=== PATIENT | male | born 1955 | race Caucasian/White ===

== ENCOUNTER 2017-08-16 09:19 | Day surgery (SDC) | payer BC, OTHER, MEDICARE ==
[~2017-08-16] VITALS: Ht 167.6 cm; Wt 77.3 kg
[2017-08-16] MEDS ORDERED: OMEP20CA10 PO (09:50)
[2017-08-16] MEDS ORDERED: CHOL100044 PO (09:51)
[2017-08-16] MEDS ORDERED: CHOL200016 PO (09:51)
[2017-08-16] MEDS ORDERED: ASCO500C15 PO (09:53)
[2017-08-16] MEDS ORDERED: CYAN-19 PO (09:54)
[2017-08-16] MEDS ORDERED: ACET-812 PO (09:55)
[2017-08-16] MEDS ORDERED: MULT-38 PO (09:55)
[2017-08-16 09:58] VITALS: BP 159/92
[2017-08-16] MEDS ORDERED: fentaNYL/PF 50MCG/1 ML 2ML syringe ONE (10:17)
[2017-08-16] MEDS ORDERED: MIDAZolam 5mg/5ml vial ONE (10:17)
[2017-08-16 10:40] VITALS: BP 125/78
[2017-08-16 10:50] VITALS: BP 123/72
[2017-08-16 11:00] VITALS: BP 136/85
[2017-08-16 11:10] VITALS: BP 130/73
== END 2017-08-16 11:45 | disposition home or self-care (01) ==
LOC: GI LAB 09:19
PROVIDERS: ATTEND Internal Medicine Gastroenterology
DX: Z12.11 Encounter for screening for malignant neoplasm of colon (principal); K21.9 Gastro-esophageal reflux disease without esophagitis; Z88.6 Allergy status to analgesic agent; Z88.5 Allergy status to narcotic agent; Z98.890 Other specified postprocedural states; Z79.82 Long term (current) use of aspirin; Z79.899 Other long term (current) drug therapy; Z87.891 Personal history of nicotine dependence
CPT/HCPCS: 45378; 99152; J2250; J3010; J7030; A4620; G0500

== ENCOUNTER 2018-01-25 12:51 | Outpatient (CLI) | payer BC, OTHER, MEDICARE ==
[~2018-01-25 12:51] MED LIST: ACET-812 PO; ASCO500C15 PO; CHOL100044 PO; CYAN-19 PO; MULT-38 PO; OMEP20CA10 PO
== END 2018-01-25 23:59 | disposition home or self-care (01) ==
LOC: RAD 12:51
PROVIDERS: ATTEND Family Medicine
DX: S99.922A Unspecified injury of left foot, initial encounter (principal); M21.42 Flat foot [pes planus] (acquired), left foot; Z79.899 Other long term (current) drug therapy; X58.XXXA Exposure to other specified factors, initial encounter; Y93.89 Activity, other specified; Y92.89 Other specified places as the place of occurrence of the external cause; Y99.8 Other external cause status
CPT/HCPCS: 73630

== ENCOUNTER 2020-02-26 09:57 | Outpatient (CLI) | payer BC, MEDICARE ==
[~2020-02-26 09:57] MED LIST changes: -ASCO500C15 PO; +ASCO500C18 PO; -CYAN-19 PO; +CYAN-51 PO; -OMEP20CA10 PO; +OMEP20CA15 PO
[2020-02-26 11:17] LABS: CLARITY,URINE CLEAR (Clear); COLOR,URINE STRAW (Yellow); GLUCOSE, URINE NEGATIVE (Neg); KETONES,URINE NEGATIVE (Neg); LEUKOCYTE ESTERASE ,URINE NEGATIVE (Neg); NITRITES, URINE NEGATIVE (Neg); OCCULT BLOOD,URINE TRACE-INTACT (Neg); PROTEIN,URINE NEGATIVE (Neg); UROBILINOGEN,URINE 0.2 E.U/dL (0.2-1.0)
[2020-02-26 11:17] LABS: BASOPHILS # (AUTO) 0.1 X10'3 (0-0.2); EOSINOPHILS # (AUTO) 0.1 X10'3 (0-0.9); HEMOGLOBIN 11.5 g/dl (14.0-17.9); NEUTROPHILS # (AUTO) 3.5 X10'3 (1.8-7.7); NEUTROPHILS % (AUTO) 62.8 % (42-75); WHITE BLOOD COUNT 5.6 X10'3 (4.5-11.0)
[2020-02-26 11:19] LABS: BASOPHILS % (AUTO) 1.2 % (0-1); EOSINOPHILS % (AUTO) 1.9 % (0-6); HEMATOCRIT 36.8 % (42.0-52.0); LYMPHOCYTES # (AUTO) 1.4 X10'3 (1.1-4.8); LYMPHOCYTES % (AUTO) 24.5 % (21-51); MEAN CORPUSCULAR HGB CONC 31.4 g/dL (33.0-36.5); MEAN PLATELET VOLUME 9.3 FL (7.4-10.4); MONOCYTES # (AUTO) 0.5 X10'3 (0-0.9); MONOCYTES % (AUTO) 9.6 % (2-12); PLATELET COUNT 180 X10'3 (140-440); RED BLOOD COUNT 5.26 X10'6 (4.70-6.10); RED CELL DISTRIBUTION WIDTH 16.6 % (11.5-14.5)
[2020-02-26 11:22] LABS: UA COLLECTION TYPE VOIDED
[2020-02-26 11:38] LABS: ALANINE AMINOTRANSFERASE 25 U/L (12-78); ALBUMIN 4.2 G/DL (3.4-5.0); ALBUMIN/GLOBULIN RATIO 1.2 (1.1-1.5); ALKALINE PHOSPHATASE 79 IU/L (46-116); ANION GAP 7 (8-16); ASPARTATE AMINO TRANSFERASE 22 U/L (10-37); BILIRUBIN,TOTAL 0.5 MG/DL (0.1-1.0); BLOOD UREA NITROGEN 13 MG/DL (7-18); BUN/CREATININE RATIO 13.8 (5.4-32.0); CALCIUM 9.1 MG/DL (8.5-10.1); CHLORIDE 102 MMOL/L (99-107); CHOL/HDL RATIO 4.8 (0.00-4.99); CHOLESTEROL 196 MG/DL (0-200); CREATININE 0.94 MG/DL (0.60-1.10); GLUCOSE 98 MG/DL (70-104); HDL CHOLESTEROL 41 MG/DL (35-60); LDL CHOLESTEROL 138 MG/DL (50-100); POTASSIUM 4.4 MMOL/L (3.5-5.1); SODIUM 138 MMOL/L (135-145); TOTAL CARBON DIOXIDE 29.4 MMOL/L (24-32); TOTAL PROTEIN 7.6 G/DL (6.4-8.2); TRIGLYCERIDES 90 MG/DL (20-135); eGFR 81 ML/MIN
[2020-02-26 12:03] LABS: MUCUS STRANDS NONE SEEN /LPF (Neg); SQUAMOUS EPITHELIAL CELL,UR FEW /LPF (FEW); TRANSITIONAL EPI CELLS,URINE FEW /HPF
[2020-02-26 12:05] LABS: BACTERIA,URINE NONE SEEN /HPF (Neg); WBC,URINE 0-4 /HPF (0-4)
== END 2020-02-26 23:59 | disposition home or self-care (01) ==
LOC: EEVIPCON 09:57 → LAB 09:57
PROVIDERS: ATTEND Family Medicine
DX: R53.83 Other fatigue (principal)
CPT/HCPCS: 36415; 80053; 80061; 81001; 84439; 84443; 85025

== ENCOUNTER 2020-03-09 22:33 | Emergency (ER) | payer BC, MEDICARE ==
[~2020-03-09] VITALS: Ht 165.1 cm; Wt 79.5 kg
[2020-03-09] MEDS ORDERED: LIDOcaine 1% W/epiNEPHrine 1:200,000 10ml vial IJ ONE (23:10)
[2020-03-09] MEDS ORDERED: BACDS PO (23:12)
[2020-03-09] MEDS ORDERED: CEPH250T PO (23:12)
[2020-03-09] MEDS ORDERED: LIDOcaine 1% w/epiNEPHrine 1:200,000 30ml vial IJ ONE (23:15)
[2020-03-10 00:05] VITALS: BP 159/94
== END 2020-03-10 00:02 | disposition home or self-care (01) ==
LOC: ER 22:33
DX: L02.416 Cutaneous abscess of left lower limb (principal); Z72.89 Other problems related to lifestyle; Z79.2 Long term (current) use of antibiotics; Z79.899 Other long term (current) drug therapy
CPT/HCPCS: 10060; 76882; 99284

== ENCOUNTER 2021-02-18 12:03 | Emergency (ER) | payer BC, MEDICARE ==
[~2021-02-18] VITALS: Ht 165.1 cm; Wt 78.2 kg
[2021-02-18 12:56] VITALS: BP 123/78
[2021-02-18] MEDS ORDERED: ondansetron 4mg rapidly disintigrating tab PO ONE (13:15)
[2021-02-18 13:30] LABS: BASOPHILS % (AUTO) 0.6 % (0-1); EOSINOPHILS % (AUTO) 0.1 % (0-6); HEMATOCRIT 44.1 % (42.0-52.0); HEMOGLOBIN 15.4 g/dl (14.0-17.9); LYMPHOCYTES # (AUTO) 0.6 X10'3 (1.1-4.8); LYMPHOCYTES % (AUTO) 19.4 % (21-51); MEAN CORPUSCULAR HGB CONC 34.9 g/dL (33.0-36.5); MEAN CORPUSCULAR VOLUME 86.2 FL (78-98); MEAN PLATELET VOLUME 9.3 FL (7.4-10.4); MONOCYTES # (AUTO) 0.4 X10'3 (0-0.9); MONOCYTES % (AUTO) 12.2 % (2-12); NEUTROPHILS % (AUTO) 67.7 % (42-75); PLATELET COUNT 86 X10'3 (140-440); RED BLOOD COUNT 5.12 X10'6 (4.70-6.10); RED CELL DISTRIBUTION WIDTH 13.5 % (11.5-14.5); WHITE BLOOD COUNT 2.9 X10'3 (4.5-11.0)
[2021-02-18 13:45] LABS: ALANINE AMINOTRANSFERASE 40 U/L (12-78); ALBUMIN 3.7 G/DL (3.4-5.0); ALBUMIN/GLOBULIN RATIO 1.1 (1.1-1.5); ALKALINE PHOSPHATASE 66 IU/L (46-116); ANION GAP 10 (8-16); ASPARTATE AMINO TRANSFERASE 34 U/L (10-37); BILIRUBIN,TOTAL 0.7 MG/DL (0.1-1.0); BLOOD UREA NITROGEN 18 MG/DL (7-18); BUN/CREATININE RATIO 13.4 (5.4-32.0); C-REACTIVE PROTEIN 2.91 MG/DL (0.0-0.5); CALCIUM 8.4 MG/DL (8.5-10.1); CHLORIDE 102 MMOL/L (99-107); CREATININE 1.34 MG/DL (0.60-1.10); GLUCOSE 106 MG/DL (70-104); LACTATE DEHYDROGENASE 201 U/L (85-227); POTASSIUM 3.7 MMOL/L (3.5-5.1); SODIUM 138 MMOL/L (135-145); TOTAL CARBON DIOXIDE 26.3 MMOL/L (24-32); TOTAL PROTEIN 7.1 G/DL (6.4-8.2); eGFR 53 ML/MIN
[2021-02-18 14:00] LABS: TOTAL CELLS COUNTED 100
[2021-02-18 14:02] LABS: PLATELET ESTIMATE DECREASED
[2021-02-18] MEDS ORDERED: ONDA4TAB6 PO (14:39)
== END 2021-02-18 14:56 | disposition home or self-care (01) ==
LOC: ER 12:04
DX: U07.1 COVID-19 (principal); R05.9 Cough, unspecified; R50.9 Fever, unspecified; R09.89 Other specified symptoms and signs involving the circulatory and respiratory systems; Z72.89 Other problems related to lifestyle; Z88.5 Allergy status to narcotic agent; Z79.899 Other long term (current) drug therapy
CPT/HCPCS: 36415; 71045; 80053; 83615; 85007; 85025; 86140; 87635; 99284; C9803

== ENCOUNTER 2021-02-19 22:42 | Emergency (ER) | payer BC, MEDICARE ==
[~2021-02-19] VITALS: Ht 165.1 cm; Wt 76.8 kg
[~2021-02-19 22:42] MED LIST changes: +ONDA4TAB6 PO
[2021-02-19 23:35] VITALS: BP 110/72
== END 2021-02-20 01:21 | disposition left against medical advice (07) ==
LOC: ER 22:43
DX: Z53.21 Procedure and treatment not carried out due to patient leaving prior to being seen by health care provider (principal)

== ENCOUNTER 2021-09-05 13:24 | Outpatient (CLI) | payer BC, MEDICARE ==
[2021-09-05 14:07] LABS: BASOPHILS # (AUTO) 0.1 X10'3 (0-0.2); BASOPHILS % (AUTO) 1.1 % (0-1); EOSINOPHILS # (AUTO) 0.1 X10'3 (0-0.9); EOSINOPHILS % (AUTO) 2.1 % (0-6); HEMATOCRIT 44.8 % (42.0-52.0); HEMOGLOBIN 15.1 g/dl (14.0-17.9); LYMPHOCYTES # (AUTO) 1.3 X10'3 (1.1-4.8); LYMPHOCYTES % (AUTO) 20.2 % (21-51); MEAN CORPUSCULAR HEMOGLOBIN 28.6 PG (27.0-31.0); MEAN CORPUSCULAR HGB CONC 33.8 g/dL (33.0-36.5); MEAN CORPUSCULAR VOLUME 84.6 FL (78-98); MEAN PLATELET VOLUME 9.1 FL (7.4-10.4); MONOCYTES # (AUTO) 0.6 X10'3 (0-0.9); MONOCYTES % (AUTO) 9.3 % (2-12); NEUTROPHILS # (AUTO) 4.3 X10'3 (1.8-7.7); NEUTROPHILS % (AUTO) 67.3 % (42-75); PLATELET COUNT 160 X10'3 (140-440); RED BLOOD COUNT 5.29 X10'6 (4.70-6.10); RED CELL DISTRIBUTION WIDTH 13.2 % (11.5-14.5); WHITE BLOOD COUNT 6.5 X10'3 (4.5-11.0)
[2021-09-05 14:12] LABS: CLARITY,URINE CLEAR (Clear); COLOR,URINE YELLOW (Yellow); GLUCOSE, URINE NEGATIVE (Neg); KETONES,URINE NEGATIVE (Neg); LEUKOCYTE ESTERASE ,URINE NEGATIVE (Neg); NITRITES, URINE NEGATIVE (Neg); OCCULT BLOOD,URINE TRACE-INTACT (Neg); PROTEIN,URINE NEGATIVE (Neg); UA COLLECTION TYPE CLN CATCH MIDSTREAM; UROBILINOGEN,URINE 0.2 E.U/dL (0.2-1.0)
[2021-09-05 14:18] LABS: BACTERIA,URINE NONE SEEN /HPF (Neg); RBC,URINE 0-2 /HPF (0-2); SQUAMOUS EPITHELIAL CELL,UR FEW /LPF (FEW); WBC,URINE NONE SEEN /HPF (0-4)
[2021-09-05 14:26] LABS: ALANINE AMINOTRANSFERASE 32 U/L (12-78); ALBUMIN 3.8 G/DL (3.4-5.0); ALBUMIN/GLOBULIN RATIO 1.2 (1.1-1.5); ALKALINE PHOSPHATASE 79 IU/L (46-116); ANION GAP 8 (8-16); ASPARTATE AMINO TRANSFERASE 22 U/L (10-37); BILIRUBIN,TOTAL 0.5 MG/DL (0.1-1.0); BLOOD UREA NITROGEN 14 MG/DL (7-18); BUN/CREATININE RATIO 15.9 (5.4-32.0); CALCIUM 8.4 MG/DL (8.5-10.1); CHLORIDE 105 MMOL/L (99-107); CHOL/HDL RATIO 4.7 (0.00-4.99); CHOLESTEROL 208 MG/DL (0-200); CREATININE 0.88 MG/DL (0.60-1.10); GLUCOSE 93 MG/DL (70-104); HDL CHOLESTEROL 44 MG/DL (35-60); HEMOGLOBIN A1C 5.2 % (4.5-6.2); LDL CHOLESTEROL 135 MG/DL (50-100); SODIUM 140 MMOL/L (135-145); TOTAL CARBON DIOXIDE 26.8 MMOL/L (24-32); TOTAL PROTEIN 6.9 G/DL (6.4-8.2); TRIGLYCERIDES 135 MG/DL (20-135); eGFR 87 ML/MIN
== END 2021-09-05 23:59 | disposition home or self-care (01) ==
LOC: LAB 13:24
PROVIDERS: ATTEND Family Medicine
DX: Z00.00 Encounter for general adult medical examination without abnormal findings (principal)
CPT/HCPCS: 36415; 80053; 80061; 81001; 83036; 84402; 84403; 84439; 84443; 85025

== ENCOUNTER 2021-09-14 09:01 | Outpatient (CLI) | payer BC, MEDICARE ==
[2021-09-15 10:33] LABS: PSA, ULTRASENSITIVE W/O SERIAL 0.721 ng/mL (0.000-4.000)
[2021-09-18 07:16] LABS: TESTOSTERONE, FREE, DIRECT 3.5 pg/mL (6.6-18.1)
== END 2021-09-14 23:59 | disposition home or self-care (01) ==
LOC: LAB 09:01
PROVIDERS: ATTEND Family Medicine
DX: Z00.01 Encounter for general adult medical examination with abnormal findings (principal)
CPT/HCPCS: 36415; 84153; 84402; 84403

== ENCOUNTER 2022-02-09 19:08 | Emergency (ER) | payer BC, MEDICARE ==
[~2022-02-09] VITALS: Ht 165.1 cm; Wt 78.2 kg
[2022-02-09 20:51] VITALS: BP 155/70
== END 2022-02-09 20:53 | disposition home or self-care (01) ==
LOC: ER 19:09
DX: M79.642 Pain in left hand (principal); Z88.5 Allergy status to narcotic agent
CPT/HCPCS: 29125; 73130; 99283

== ENCOUNTER 2022-03-23 05:40 | Day surgery (SDC) | payer BC, MEDICARE ==
[2022-03-15 10:58] LABS: BASOPHILS # (AUTO) 0.1 X10'3 (0-0.2); EOSINOPHILS # (AUTO) 0.1 X10'3 (0-0.9); EOSINOPHILS % (AUTO) 1.8 % (0-6); LYMPHOCYTES # (AUTO) 1.5 X10'3 (1.1-4.8); MEAN CORPUSCULAR HGB CONC 34.6 g/dL (33.0-36.5); MEAN CORPUSCULAR VOLUME 86.8 FL (78-98); MONOCYTES # (AUTO) 0.8 X10'3 (0-0.9); MONOCYTES % (AUTO) 10.2 % (2-12); PRE OP HEMATOCRIT 44.1 % (42.0-52.0); PRE OP HEMOGLOBIN 15.3 g/dL (14.0-17.9); PRE OP PLATELET COUNT 164 X10'3 (140-440); RED BLOOD COUNT 5.08 X10'6 (4.70-6.10); RED CELL DISTRIBUTION WIDTH 13.1 % (11.5-14.5)
[2022-03-15 11:23] LABS: ALBUMIN 3.8 G/DL (3.4-5.0); ALBUMIN/GLOBULIN RATIO 1.2 (1.1-1.5); ALKALINE PHOSPHATASE 74 IU/L (46-116); BLOOD UREA NITROGEN 13 MG/DL (7-18); CALCIUM 8.6 MG/DL (8.5-10.1); CHLORIDE 104 MMOL/L (99-107); PRE OP ALT 30 U/L (30-65); PRE OP ANION GAP 7 (8-16); PRE OP AST 27 U/L (10-37); PRE OP BILIRUB, TOTAL 0.6 MG/DL (0.0-1.0); PRE OP GLUCOSE 101 MG/DL (70-104); PRE OP POTASSIUM 4.3 MMOL/L (3.4-5.1); PRE OP SODIUM 140 MMOL/L (135-145); TOTAL CARBON DIOXIDE 29.2 MMOL/L (24-32); eGFR 75 ML/MIN
[~2022-03-23] VITALS: Ht 162.6 cm; Wt 84.3 kg
[2022-03-23] VITALS (12 sets, daily range): BP systolic 144–177; BP diastolic 78–98
[~2022-03-23 05:40] MED LIST changes: +FERR236T3 PO; -ONDA4TAB6 PO; +TEST5GEL2 TOP; +TURM500C4 PO; +[UNRECOGNIZED DRUG - CODE] PO; +ceFAZolin inj. 2,000 MG in dextrose 5%-water 100 ML IV ONE; +famotidine 20mg tablet PO ONE; +ringers solution, lacted 1,000 ML IV SCH
[2022-03-23] MEDS ORDERED: LIDOCAINE 1%/EPI 1:100,000 inj. 10 ML multi-dose vial ONE ×2 (06:42→07:52)
[2022-03-23] MEDS ORDERED: TETRACAINE 0.5% 4 ML OPHTHALMIC DROPS ONE (06:42)
[2022-03-23] MEDS ORDERED: ondansetron/PF 4mg/2ml inj IV PRN (07:15)
[2022-03-23] MEDS ORDERED: labetalol 20mg/4ml (5mg/ml) syringe IV PRN (07:15)
[2022-03-23] MEDS ORDERED: fentaNYL/PF 50MCG/1 ML 2ML syringe IV PRN ×2 (07:15)
[2022-03-23] MEDS ORDERED: morphine 4 MG/ML inj SYRINge IV PRN (07:15)
[2022-03-23] MEDS ORDERED: hydrALAZINE 20mg/ml inj. IV PRN (07:15)
[2022-03-23] MEDS ORDERED: ringers solution, lacted 1,000 ML IV SCH (07:15)
[2022-03-23] MEDS ORDERED: morphine 2 MG/ML inj. syringe IV PRN (07:15)
[2022-03-23] MEDS ORDERED: fentaNYL/PF 50MCG/1 ML 2ML syringe ONE ×2 (07:20→08:47)
[2022-03-23] MEDS ORDERED: midazolam 1 mg/ML 2ml injection ONE (07:21)
[2022-03-23] MEDS ORDERED: LIDOcaine 2% (20mg/ml) 5ml vial ONE (07:22)
[2022-03-23] MEDS ORDERED: propofol inj 20 ML IV ONE (07:22)
[2022-03-23] MEDS ORDERED: ondansetron/PF 4mg/2ml inj ONE (07:36)
[2022-03-23] MEDS ORDERED: dexamethasone sod phosphate 4mg/ml inj. ONE (07:37)
[2022-03-23] MEDS ORDERED: labetalol 20mg/4ml (5mg/ml) syringe IV ONE (07:45)
--- NOTE | 2022-03-23 09:16 | NUR ---
Received from OR via [facility], accompanied by Anesthesiologist DR WAGONER and report given by Anesthesiologist AND SENIOR REPORT DEVELOPER. PT RESTLESS, ATTEMPTING TO SIT UP AND REFUSING TO WEAR EYE PADS. BILAT EYES W/STITCHES ABOVE AND BELOW EYE LIDS INTACT, SCANT AMT OF S/S DRAINAGE FROM OUTER LEFT EYE, DR MORAES IN AND ASSESSED, IS OKAY. PT NOW COMPLIANT, PLACED COOLED WET 4X4'S OVER BILAT EYES. Addendum: 03/23/22 at 1001 by Maris Gary RN Amended: Links added.
--- NOTE | 2022-03-23 11:06 | NUR ---
PT UP AND ABLE TO AMBULATE SAFELY, VOIDED, D/C INSTRUCTIONS GIVEN AND GONE OVER W/PT WHO VERBALIZED UNDERSTANDING. PT D/CD TO HOME VIA W/C TO PRIVATE VEHICLE W/O INCIDENT. Addendum: 03/23/22 at 1134 by Maris Gary RN Amended: Links added.
== END 2022-03-23 11:06 | disposition home or self-care (01) ==
LOC: PAS 05:40
PROVIDERS: ATTEND Specialist
DX: H02.831 Dermatochalasis of right upper eyelid (principal); H02.834 Dermatochalasis of left upper eyelid; H02.832 Dermatochalasis of right lower eyelid; H02.835 Dermatochalasis of left lower eyelid; K21.9 Gastro-esophageal reflux disease without esophagitis; M19.90 Unspecified osteoarthritis, unspecified site; Z79.899 Other long term (current) drug therapy; Z98.890 Other specified postprocedural states; Z88.6 Allergy status to analgesic agent
CPT/HCPCS: 15821; 15823; 36415; 80053; 82948; 85025; 93005; A6402; J0360; J0690; J1100; J2250; J2405; J2704; J3010; J3490; J7030; J7060; J7120; Z7506; Z7508; Z7512; A4215; A4618; A6410; A6449; A7000

== ENCOUNTER 2022-05-10 11:51 | Outpatient (CLI) | payer BC, MEDICARE ==
[~2022-05-10 11:51] MED LIST changes: -ceFAZolin inj. 2,000 MG in dextrose 5%-water 100 ML IV ONE; -famotidine 20mg tablet PO ONE; -ringers solution, lacted 1,000 ML IV SCH
[2022-05-10 12:46] LABS: BASOPHILS # (AUTO) 0.1 X10'3 (0-0.2); BASOPHILS % (AUTO) 1.3 % (0-1); CLARITY,URINE CLEAR (Clear); COLOR,URINE YELLOW (Yellow); EOSINOPHILS # (AUTO) 0.1 X10'3 (0-0.9); EOSINOPHILS % (AUTO) 2.1 % (0-6); GLUCOSE, URINE NEGATIVE (Neg); HEMATOCRIT 39.7 % (42.0-52.0); HEMOGLOBIN 13.1 g/dl (14.0-17.9); KETONES,URINE NEGATIVE (Neg); LEUKOCYTE ESTERASE ,URINE NEGATIVE (Neg); LYMPHOCYTES # (AUTO) 1.1 X10'3 (1.1-4.8); MEAN CORPUSCULAR HEMOGLOBIN 28.5 PG (27.0-31.0); MEAN CORPUSCULAR HGB CONC 32.9 g/dL (33.0-36.5); MEAN CORPUSCULAR VOLUME 86.5 FL (78-98); MEAN PLATELET VOLUME 9.6 FL (7.4-10.4); MONOCYTES # (AUTO) 0.6 X10'3 (0-0.9); MONOCYTES % (AUTO) 11.1 % (2-12); NEUTROPHILS # (AUTO) 3.4 X10'3 (1.8-7.7); NEUTROPHILS % (AUTO) 64.5 % (42-75); NITRITES, URINE NEGATIVE (Neg); OCCULT BLOOD,URINE TRACE-INTACT (Neg); PLATELET COUNT 210 X10'3 (140-440); PROTEIN,URINE NEGATIVE (Neg); RED BLOOD COUNT 4.59 X10'6 (4.70-6.10); RED CELL DISTRIBUTION WIDTH 13.6 % (11.5-14.5); UROBILINOGEN,URINE 0.2 E.U/dL (0.2-1.0); WHITE BLOOD COUNT 5.3 X10'3 (4.5-11.0)
[2022-05-10 12:54] LABS: UA COLLECTION TYPE NON-SPECIFIED
[2022-05-10 12:59] LABS: BACTERIA,URINE NONE SEEN /HPF (Neg); MUCUS STRANDS NONE SEEN /LPF (Neg); RBC,URINE 0-2 /HPF (0-2); SQUAMOUS EPITHELIAL CELL,UR NONE SEEN /LPF (FEW); WBC,URINE NONE SEEN /HPF (0-4)
[2022-05-10 13:06] LABS: ALANINE AMINOTRANSFERASE 25 U/L (12-78); ALBUMIN 4.1 G/DL (3.4-5.0); ALBUMIN/GLOBULIN RATIO 1.4 (1.1-1.5); ALKALINE PHOSPHATASE 70 IU/L (46-116); ANION GAP 5 (8-16); ASPARTATE AMINO TRANSFERASE 27 U/L (10-37); BILIRUBIN,TOTAL 0.5 MG/DL (0.1-1.0); BLOOD UREA NITROGEN 12 MG/DL (7-18); BUN/CREATININE RATIO 12.9 (5.4-32.0); CALCIUM 8.5 MG/DL (8.5-10.1); CHLORIDE 101 MMOL/L (99-107); CHOL/HDL RATIO 3.8 (0.00-4.99); CHOLESTEROL 189 MG/DL (0-200); CREATININE 0.93 MG/DL (0.60-1.10); GLUCOSE 103 MG/DL (70-104); HDL CHOLESTEROL 50 MG/DL (35-60); LDL CHOLESTEROL 130 MG/DL (50-100); POTASSIUM 3.6 MMOL/L (3.5-5.1); SODIUM 138 MMOL/L (135-145); TOTAL CARBON DIOXIDE 31.7 MMOL/L (24-32); TOTAL PROTEIN 7.1 G/DL (6.4-8.2); TRIGLYCERIDES 73 MG/DL (20-135); eGFR 81 ML/MIN
[2022-05-17 13:13] LABS: TESTOSTERONE, FREE, DIRECT 14.7 pg/mL (6.6-18.1)
== END 2022-05-10 23:59 | disposition home or self-care (01) ==
LOC: LAB 11:51
PROVIDERS: ATTEND Family Medicine
DX: D50.9 Iron deficiency anemia, unspecified (principal); R53.83 Other fatigue; E78.5 Hyperlipidemia, unspecified
CPT/HCPCS: 36415; 80053; 80061; 81001; 84402; 84403; 84439; 84443; 85025

== ENCOUNTER → 2022-05-19 | Outpatient (CLI) | payer BC, MEDICARE ==
[2022-05-19 10:25] LABS: BASOPHILS # (AUTO) 0.1 X10'3 (0-0.2); BASOPHILS % (AUTO) 0.9 % (0-1); EOSINOPHILS # (AUTO) 0.2 X10'3 (0-0.9); EOSINOPHILS % (AUTO) 2.8 % (0-6); HEMATOCRIT 39.3 % (42.0-52.0); HEMOGLOBIN 12.9 g/dl (14.0-17.9); LYMPHOCYTES # (AUTO) 1.2 X10'3 (1.1-4.8); LYMPHOCYTES % (AUTO) 21.3 % (21-51); MEAN CORPUSCULAR HEMOGLOBIN 28.3 PG (27.0-31.0); MEAN CORPUSCULAR HGB CONC 32.9 g/dL (33.0-36.5); MEAN CORPUSCULAR VOLUME 86.1 FL (78-98); MEAN PLATELET VOLUME 9.7 FL (7.4-10.4); MONOCYTES # (AUTO) 0.6 X10'3 (0-0.9); MONOCYTES % (AUTO) 10.8 % (2-12); NEUTROPHILS # (AUTO) 3.7 X10'3 (1.8-7.7); NEUTROPHILS % (AUTO) 64.2 % (42-75); PLATELET COUNT 156 X10'3 (140-440); RED BLOOD COUNT 4.56 X10'6 (4.70-6.10); RED CELL DISTRIBUTION WIDTH 13.5 % (11.5-14.5); WHITE BLOOD COUNT 5.7 X10'3 (4.5-11.0)
[2022-05-19 10:43] LABS: % IRON SATURATION 91 % (11-46); IRON 317 UG/DL (53-167); TOTAL IRON BINDING CAPACITY 347 UG/DL (259-388)
== END | disposition home or self-care (01) ==
LOC: LAB 09:38
PROVIDERS: ATTEND Family Medicine
DX: I78.0 Hereditary hemorrhagic telangiectasia (principal)
CPT/HCPCS: 36415; 82728; 83540; 83550; 85025

== ENCOUNTER 2023-02-14 23:12 | Emergency (ER) | payer BC, MEDICARE ==
[~2023-02-14] VITALS: Ht 165.1 cm; Wt 78.2 kg
[~2023-02-14 23:12] MED LIST changes: +CYAN-104 PO; -CYAN-51 PO
[2023-02-15 02:13] VITALS: BP 122/72; PULSE 61; RESP 16; TEMP 98.3; O2SAT 96
[2023-02-15] MEDS ORDERED: normal saline 1000ml 1,000 ML IV ONE (02:25)
[2023-02-15 02:42] LABS: BASOPHILS # (AUTO) 0.1 X10'3 (0-0.2); EOSINOPHILS # (AUTO) 0.1 X10'3 (0-0.9); EOSINOPHILS % (AUTO) 1.3 % (0-6); HEMATOCRIT 30.4 % (42.0-52.0); HEMOGLOBIN 10.1 g/dl (14.0-17.9); LYMPHOCYTES # (AUTO) 1.1 X10'3 (1.1-4.8); LYMPHOCYTES % (AUTO) 13.3 % (21-51); MEAN CORPUSCULAR HEMOGLOBIN 27.4 PG (27.0-31.0); MEAN CORPUSCULAR HGB CONC 33.2 g/dL (33.0-36.5); MEAN CORPUSCULAR VOLUME 82.5 FL (78-98); MEAN PLATELET VOLUME 8.8 FL (7.4-10.4); MONOCYTES # (AUTO) 0.6 X10'3 (0-0.9); MONOCYTES % (AUTO) 6.8 % (2-12); NEUTROPHILS # (AUTO) 6.7 X10'3 (1.8-7.7); NEUTROPHILS % (AUTO) 77.6 % (42-75); PLATELET COUNT 183 X10'3 (140-440); RED BLOOD COUNT 3.69 X10'6 (4.70-6.10); RED CELL DISTRIBUTION WIDTH 14.7 % (11.5-14.5); WHITE BLOOD COUNT 8.6 X10'3 (4.5-11.0)
== END 2023-02-15 03:45 | disposition home or self-care (01) ==
LOC: ER 23:13
DX: R04.0 Epistaxis (principal); R42 Dizziness and giddiness; R55 Syncope and collapse; Z88.5 Allergy status to narcotic agent; Z88.6 Allergy status to analgesic agent; Z79.899 Other long term (current) drug therapy; Z88.8 Allergy status to other drugs, medicaments and biological substances
CPT/HCPCS: 36415; 85025; 99283

== ENCOUNTER 2023-09-27 08:23 | Outpatient (CLI) | payer BC, MEDICARE ==
[2023-09-27 08:59] LABS: BILIRUBIN,URINE NEGATIVE (Neg); CLARITY,URINE CLEAR (Clear); COLOR,URINE YELLOW (Yellow); GLUCOSE, URINE NEGATIVE (Neg); KETONES,URINE NEGATIVE (Neg); LEUKOCYTE ESTERASE ,URINE NEGATIVE (Neg); NITRITES, URINE NEGATIVE (Neg); OCCULT BLOOD,URINE TRACE-INTACT (Neg); PH,URINE 5.5 (4.8-8.0); PROTEIN,URINE NEGATIVE (Neg); UROBILINOGEN,URINE 0.2 E.U/dL (0.2-1.0)
[2023-09-27 09:02] LABS: BASOPHILS # (AUTO) 0.1 X10'3 (0-0.2); BASOPHILS % (AUTO) 1.4 % (0-1); EOSINOPHILS # (AUTO) 0.1 X10'3 (0-0.9); EOSINOPHILS % (AUTO) 1.9 % (0-6); HEMATOCRIT 38.7 % (42.0-52.0); HEMOGLOBIN 12.4 g/dl (14.0-17.9); LYMPHOCYTES % (AUTO) 19.1 % (21-51); MEAN CORPUSCULAR HEMOGLOBIN 25.5 PG (27.0-31.0); MEAN CORPUSCULAR VOLUME 79.5 FL (78-98); MEAN PLATELET VOLUME 9.2 FL (7.4-10.4); MONOCYTES # (AUTO) 0.5 X10'3 (0-0.9); MONOCYTES % (AUTO) 9.7 % (2-12); NEUTROPHILS # (AUTO) 3.6 X10'3 (1.8-7.7); NEUTROPHILS % (AUTO) 67.9 % (42-75); PLATELET COUNT 202 X10'3 (140-440); RED BLOOD COUNT 4.87 X10'6 (4.70-6.10); WHITE BLOOD COUNT 5.3 X10'3 (4.5-11.0)
[2023-09-27 09:03] LABS: UA COLLECTION TYPE VOIDED
[2023-09-27 09:05] LABS: MUCUS STRANDS FEW /LPF (Neg); SQUAMOUS EPITHELIAL CELL,UR FEW /LPF (FEW)
[2023-09-27 09:06] LABS: COARSE GRANULAR CAST 0-3 /LPF (NEGATIVE); FINE GRANULAR CAST 0-3 /LPF (NEGATIVE); WBC,URINE 0-4 /HPF (0-4)
[2023-09-27 09:07] LABS: BACTERIA,URINE FEW /HPF (Neg)
[2023-09-27 09:15] LABS: ALANINE AMINOTRANSFERASE 25 U/L (12-78); ALBUMIN 3.8 G/DL (3.4-5.0); ALBUMIN/GLOBULIN RATIO 1.1 (1.1-1.5); ALKALINE PHOSPHATASE 78 IU/L (46-116); ANION GAP 7 (8-16); ASPARTATE AMINO TRANSFERASE 21 U/L (10-37); BILIRUBIN,TOTAL 0.4 MG/DL (0.1-1.0); BLOOD UREA NITROGEN 16 MG/DL (7-18); CALCIUM 8.9 MG/DL (8.5-10.1); CHLORIDE 103 MMOL/L (99-107); CREATININE 0.94 MG/DL (0.60-1.10); GLUCOSE 100 MG/DL (70-104); POTASSIUM 4.2 MMOL/L (3.5-5.1); SODIUM 139 MMOL/L (135-145); TOTAL CARBON DIOXIDE 29.4 MMOL/L (24-32); TOTAL PROTEIN 7.3 G/DL (6.4-8.2); eGFR 80 ML/MIN
[2023-09-27 09:25] LABS: CHOLESTEROL 174 MG/DL (0-200); FREE T4 (FREE THYROXINE) 0.61 NG/DL (0.73-1.40); HDL CHOLESTEROL 44 MG/DL (35-60); LDL CHOLESTEROL 117 MG/DL (50-100); TRIGLYCERIDES 101 MG/DL (20-135)
[2023-09-28 11:58] LABS: CREATININE, URINE 139.9 mg/dL (Not Estab.); MICROALB/CRT, RATIO 7 mg/g creat (0-29); MICROALBUMIN,U,RANDOM 9.9 ug/mL (Not Estab.); TESTOSTERONE, SERUM 418 ng/dL (264-916)
== END 2023-09-27 23:59 | disposition home or self-care (01) ==
LOC: LAB 08:23
PROVIDERS: ATTEND Family Medicine
DX: Z00.01 Encounter for general adult medical examination with abnormal findings (principal); E78.5 Hyperlipidemia, unspecified; R53.83 Other fatigue
CPT/HCPCS: 36415; 80053; 80061; 81001; 82043; 82570; 84153; 84402; 84403; 84439; 84443; 85025

== ENCOUNTER 2024-08-21 09:49 | Outpatient (CLI) | payer BC, MEDICARE ==
[2024-08-21 10:27] LABS: BASOPHILS # (AUTO) 0.1 X10'3 (0-0.2); BASOPHILS % (AUTO) 1.1 % (0-1); BILIRUBIN,URINE NEGATIVE (Neg); CLARITY,URINE CLEAR (Clear); COLOR,URINE YELLOW (Yellow); EOSINOPHILS # (AUTO) 0.1 X10'3 (0-0.9); EOSINOPHILS % (AUTO) 1.9 % (0-6); GLUCOSE, URINE NEGATIVE (Neg); HEMATOCRIT 40.9 % (42.0-52.0); HEMOGLOBIN 13.9 g/dl (14.0-17.9); KETONES,URINE NEGATIVE (Neg); LEUKOCYTE ESTERASE ,URINE NEGATIVE (Neg); LYMPHOCYTES # (AUTO) 1.1 X10'3 (1.1-4.8); LYMPHOCYTES % (AUTO) 21.6 % (21-51); MEAN CORPUSCULAR HGB CONC 33.8 g/dL (33.0-36.5); MEAN CORPUSCULAR VOLUME 82.8 FL (78-98); MEAN PLATELET VOLUME 9.6 FL (7.4-10.4); MONOCYTES # (AUTO) 0.5 X10'3 (0-0.9); MONOCYTES % (AUTO) 9.3 % (2-12); NEUTROPHILS # (AUTO) 3.4 X10'3 (1.8-7.7); NEUTROPHILS % (AUTO) 66.1 % (42-75); NITRITES, URINE NEGATIVE (Neg); OCCULT BLOOD,URINE SMALL (Neg); PLATELET COUNT 187 X10'3 (140-440); PROTEIN,URINE NEGATIVE (Neg); RED BLOOD COUNT 4.94 X10'6 (4.70-6.10); RED CELL DISTRIBUTION WIDTH 14.3 % (11.5-14.5); UROBILINOGEN,URINE 0.2 E.U/dL (0.2-1.0); WHITE BLOOD COUNT 5.2 X10'3 (4.5-11.0)
[2024-08-21 10:29] LABS: UA COLLECTION TYPE CLN CATCH MIDSTREAM
[2024-08-21 10:37] LABS: BACTERIA,URINE NONE SEEN /HPF (Neg); RBC,URINE 0-2 /HPF (0-2); SQUAMOUS EPITHELIAL CELL,UR NONE SEEN /LPF (FEW); WBC,URINE NONE SEEN /HPF (0-4)
[2024-08-21 10:51] LABS: ALANINE AMINOTRANSFERASE 29 U/L (12-78); ALBUMIN 3.8 G/DL (3.4-5.0); ALBUMIN/GLOBULIN RATIO 1.3 (1.1-1.5); ALKALINE PHOSPHATASE 78 IU/L (46-116); ANION GAP 4 (8-16); ASPARTATE AMINO TRANSFERASE 24 U/L (10-37); BILIRUBIN,TOTAL 0.6 MG/DL (0.1-1.0); BLOOD UREA NITROGEN 12 MG/DL (7-18); BUN/CREATININE RATIO 12.9 (10.0-20.0); CALCIUM 8.6 MG/DL (8.5-10.1); CHLORIDE 107 MMOL/L (99-107); CHOL/HDL RATIO 3.4 (0.00-4.99); CHOLESTEROL 172 MG/DL (0-200); CREATININE 0.93 MG/DL (0.60-1.10); GLUCOSE 94 MG/DL (70-104); HDL CHOLESTEROL 50 MG/DL (35-60); LDL CHOLESTEROL 111 MG/DL (50-100); POTASSIUM 4.2 MMOL/L (3.5-5.1); SODIUM 142 MMOL/L (135-145); THYROID STIMULATING HORMONE 2.49 ulU/ml (0.34-4.50); TOTAL PROTEIN 6.7 G/DL (6.4-8.2); TRIGLYCERIDES 61 MG/DL (20-135); eGFR 81 ML/MIN
== END 2024-08-21 23:59 | disposition home or self-care (01) ==
LOC: LAB 09:49
PROVIDERS: ATTEND Family Medicine
DX: Z00.01 Encounter for general adult medical examination with abnormal findings (principal)
CPT/HCPCS: 36415; 80053; 80061; 81001; 84443; 85025

== ENCOUNTER 2024-09-01 16:52 | Emergency (ER) | payer BC, MEDICARE ==
[~2024-09-01] VITALS: Ht 165.1 cm; Wt 82.0 kg
[2024-09-01 20:15] VITALS: BP 152/69; PULSE 60; TEMP 97.8; O2SAT 98
--- NOTE | 2024-09-01 20:23 | Physician Documentation ---
History of Present Illness ~ Chief Complaint: Knee Pain Stated Complaint: LEFT KNEE INFECTION Time Seen by MD: 20:21 Primary Medical Doctor: [facility] Patient presents to the emergency room with one-week history of painful swelling to his left knee. No traumas reported. He was seen by his doctor one-week ago and prescribed Keflex reports compliance. Also received one dose of IM Rocephin. Presumed diagnosis of septic bursitis. He came in today as symptoms seemed to be worsening. No fevers. Tetanus witin 5 years: No (UNK) Medication Reconciliation Allergies: Coded Allergies: codeine (Unverified Allergy, Unknown, 09/01/24) Uncoded Allergies: NSAIDS (Allergy, Unknown, 12/03/16) Scheduled Acetaminophen (Tylenol Extra Strength), 2 TABLET PO QAM, (Reported) Ascorbic Acid (Vitamin C), 2 CAP PO DAILY, (Reported) Cholecalciferol (Vitamin D), 5,000 TAB PO DAILY, (Reported) Cyanocobalamin (Vitamin B-12), 5,000 MCG PO DAILY, (Reported) Ferrous Gluconate (Iron), 1 TAB PO DAILY, (Reported) Multivitamin (Daily Multiple Vitamin), 1 TAB PO DAILY, (Reported) Omeprazole (Omeprazole), 1 CAP PO DAILY, (Reported) Shark Cartilage (Shark Fin Cartilage), 1,000 MG PO DAILY, (Reported) Testosterone (Androgel), 1 PKT TOP DAILY, (Reported) Turmeric/Turmeric Root Extract (Turmeric 500 mg Capsule), 1 CAP PO Q12H, (Reported) Past Medical History Past Medical History: No Pertinent History Past Surgical History: no surgical history Alcohol Use: Occasionally Drug Use: none Lives with: Family Lives In: Home Occupation: employed Review of Systems ROS All review of systems negative except as per HPI Physical Exam Vital Signs: Temperature: 97.8, Source: Oral, Heart Rate: 60, Respiratory Rate: 15, BP: 152/69, Pulse Oximetry: 98, Weight: 81.990 Oxygen Flow Rate: 0 Physical Exam General: Patient is awake, alert, oriented x4 in no acute distress and well appearing.~ Head: Normocephalic and atraumatic. Eyes: Conjunctival normal. EOMI. PERRL. ENT: Mucous membranes moist. Neck: Supple, trachea is midline. Chest: Clear to auscultation bilaterally without rales, rhonchi, or wheezes. There is no accessory muscle use or retractions. Cardiac: RRR without murmurs, gallops, or rubs. Abd: Soft, nondistended, nontender, with normoactive bowel sounds. No guarding, rebound, or rigidity. Extremities: Right leg normal, left leg with tenderness and erythema over patella with mild erythema extending distally. Neurovascularly intact Procedures Procedures Bursa aspiration: Status post informed written consent patient was sterilely cleaned and draped. Patient was cleaned with Betadine and anesthetized with 1% lidocaine with epinephrine total of 0.5 cc. An 18 Gauge needle utilized to perform aspiration of left patellar bursa however no fluid could be extracted after three attempts. Pressure applied to puncture wound and Band-Aid applied. Total time of procedure 5 minutes. Progress Results/Orders Results/Orders Orders - REY CHACON MD Culture Body Fluid Order (09/01/24 20:49) Bf Cell Count (09/01/24 20:49) Vital Signs 09/01/24 09/01/24 09/01/24 16:57 20:15 21:20 Temp 97.8 97.8 Pulse 65 60 Resp 18 15 16 B/P (MAP) 191/85 152/69 (96) Pulse Ox 96 98 O2 Flow Rate 0 Medical Decision Making Findings Patient presented to the emergency room with reported septic bursitis on antibiotics. Differentials include but are not limited to septic bursitis, gout, DVT, cellulitis. Patient's vital signs are stable and he had not believe he is septic. After discussing the risks benefits and alternatives of bursitis aspiration attempt at bursitis aspiration failed. Possibly no fluid collection and just cellulitis. I do not suspect septic arthritis as patient is able to freely move his knee. Offered admission however patient would prefer to be treated on outpatient basis with strict ER precautions discussed. We will treat him with IV antibiotics x1 dose here in add an additional antibiotic to his Keflex. Departure Disposition: HOME / SELF CARE / HOMELESS Impression: Primary Impression: Septic bursitis Condition: Fair Discharge Instructions: Cellulitis, Adult Referrals: NO PRIMARY CARE PROVIDER (PCP) Prescriptions Clindamycin HCL* (Clindamycin HCL*) 300 Mg Capsule 1 CAP PO Q8H for 10 Days, #30 CAP 0 Refills Prov: REY CHACON MD 09/01/24 Education Educated: Patient, Family Educated regarding: diagnosis, treatment, need for follow up Signature Scribe Signature: no scribe Attestation: The note accurately reflects work and decisions made by me.Rey Chacon MD 09/01/24 21:38 REY CHACON MD September 01, 2024 20:23
[2024-09-01 21:20] VITALS: RESP 16
[2024-09-01] MEDS ORDERED: CLIN-97 PO (21:38)
[2024-09-01] MEDS ORDERED: CLINDAMYCIN 600mg IN NS 50ML 50 ML IV ONE (21:40)
[2024-09-01] MEDS: clindamycin 600mg/D5W 50ml 50 ML IV ONE (22:16)
== END 2024-09-01 22:42 | disposition home or self-care (01) ==
LOC: ER 16:53
DX: M70.52 Other bursitis of knee, left knee (principal); Z88.5 Allergy status to narcotic agent; Y93.89 Activity, other specified
CPT/HCPCS: 20610; 96365; 99284; J3490

== ENCOUNTER 2025-01-22 10:30 | Outpatient (CLI) | payer BC, MEDICARE ==
[~2025-01-22 10:30] MED LIST changes: +CLIN-224 PO
--- NOTE | 2025-01-22 11:27 | RADIOLOGY REPORT ---
DI CHEST,TWO VIEWS, HISTORY: WHEEZING COMPARISON: CHEST,SINGLE VIEW on DOS: 02/18/21 CHEST,SINGLE VIEW on DOS: 02/18/21 TECHNICAL DATA: 2 view of the chest was obtained. FINDINGS: Lines and tubes: None Cardiomediastinal silhouette: normal Pulmonary vasculature: normal Lung expansion: normal Lung airspace: normal Lung interstitium: normal Pleura: normal Pneumothorax: no Bones: Unremarkable Other: no IMPRESSION: No acute intrathoracic abnormality.
== END 2025-01-22 23:59 | disposition home or self-care (01) ==
LOC: RAD 10:30
PROVIDERS: ATTEND Family Medicine
DX: R06.2 Wheezing (principal)
CPT/HCPCS: 71046